=== PATIENT | female | born 1950 ===

== ENCOUNTER → 2017-04-13 | Outpatient (CLI) | payer MEDICARE ==
[2017-04-13] MEDS: GADOBUTROL 7.5 MMOL/7.5 ML VIAL IV (15:49)
== END | disposition home or self-care (01) ==
LOC: KCIC MRI 15:00
DX: M25.78 Osteophyte, vertebrae (principal); R42 Dizziness and giddiness; R20.2 Paresthesia of skin
CPT/HCPCS: 72156; A9585

== ENCOUNTER → 2017-05-02 | Outpatient (CLI) | payer MEDICARE ==
[~2017-05-02] MED LIST: IOHEXOL 180 MG/ML 10 ML VIAL.; methylPREDNISolone ACETATE 40 MG/ML VIAL.; methylPREDNISolone ACETATE 80 MG/ML VIAL.
== END ==
LOC: PNCL 13:22
DX: M50.123 Cervical disc disorder at C6-C7 level with radiculopathy (principal); M19.90 Unspecified osteoarthritis, unspecified site; E11.9 Type 2 diabetes mellitus without complications; Z79.4 Long term (current) use of insulin
CPT/HCPCS: 62321; J1030; J1040; Q9965